=== PATIENT | male | born 1985 | race Two or more races ===

== ENCOUNTER → 2016-10-04 | Outpatient (CLI) | payer OTHER ==
[2015-03-07 21:04] VITALS: BP 122/60
[2016-10-04 20:03] LABS: BF CLARITY HAZY; BF COLOR YELLOW
== END | disposition home or self-care (01) ==
LOC: LAB 16:24
PROVIDERS: ATTEND Orthopaedic Surgery
DX: M25.561 Pain in right knee (principal)
CPT/HCPCS: 87102; 87116; 87205; 89050; 89060

== ENCOUNTER → 2016-10-18 | Outpatient (CLI) | payer OTHER ==
[2015-03-07 21:04] VITALS: BP 122/60
--- NOTE | 2016-10-18 12:00 | KCIC ---
PROCEDURE MR of the right knee HISTORY Right knee pain and stiffness for 2 months anteriorly. No known injury. TECHNIQUE Standard noncontrast images are obtained. COMPARISON None FINDINGS No evidence of a medial meniscal tear. No evidence of a lateral meniscal tear. The anterior and the posterior cruciate ligaments are intact. Medial collateral ligament is intact. Iliotibial band unremarkable. Fibular collateral ligament, biceps femoris tendon and popliteus tendon are intact. The extensor mechanism is intact. Trace joint fluid. No evidence of an osteochondral loose body. Articular cartilage appears intact. No bone lesion or acute fracture. There is some mild soft tissue edema/fluid signal at the distal semimembranosus tendon compatible with mild bursitis. There is mild edema or inflammation within the infrapatellar fat. Solitary mildly enlarged popliteal lymph node identified measuring 11 millimeters. IMPRESSION 1. No evidence meniscal tear or internal derangement. 2. Solitary mildly enlarged popliteal lymph node, nonspecific but could be reactive. 3. Mild fluid or bursitis along the distal semimembranosus tendon. 4. Mild edema or inflammation within the infrapatellar fat. Electronically signed by: Terry Prince MD (Oct 18, 2016 11:58:51)
== END | disposition home or self-care (01) ==
LOC: KCIC MRI 09:53
PROVIDERS: ATTEND Orthopaedic Surgery
DX: M25.661 Stiffness of right knee, not elsewhere classified (principal)
CPT/HCPCS: 73721

== ENCOUNTER 2017-03-01 11:01 | Emergency (ER) | payer OTHER ==
[2017-03-01] MEDS ORDERED: METOCLOPRAMIDE HCL 10 MG/2 ML VIAL. IV ONE (12:15)
[2017-03-01] MEDS ORDERED: IV NORMAL SALINE 1000ML BAG 1,000 ML IV ONE (12:15)
[2017-03-01] MEDS ORDERED: HYDROmorphone 2 MG/ML VIAL IV ONE (12:15)
[2017-03-01] MEDS ORDERED: diphenhydrAMINE 50 MG/ML VIAL IVP ONE (12:15)
[2017-03-01 12:26] LABS: BASO % 0 % (0-3); EOS % 1 % (0-3); LYMPH # 1.4 x10^3/uL (1.0-4.8); LYMPH % 13 % (24-48); MEAN CORPUSCULAR HEMOGLOBIN 26 pg (25-35); MEAN CORPUSCULAR HGB CONC 33 g/dL (31-37); MEAN CORPUSCULAR VOLUME 78 fL (79-100); MONO % 5 % (0-9); NEUT % 82 % (31-73); PLATELET COUNT 214 x10^3/uL (140-400); RED BLOOD COUNT 5.36 x10^6/uL (4.30-5.70); RED CELL DISTRIBUTION WIDTH 14.3 % (11.5-14.5); WHITE BLOOD COUNT 11.4 x10^3/uL (4.0-11.0)
--- NOTE | 2017-03-01 12:31 | RAD ---
CT of the head without contrast, 03/01/2017: History: Headache, numbness and weakness The ventricles are within normal limits in size. There is no shift of the midline structures. There is no evidence of acute intracranial hemorrhage or mass effect. IMPRESSION: The CT of the head without contrast reveals no significant. PQRS Compliance Statement: One or more of the following individualized dose reduction techniques were utilized for this examination: 1. Automated exposure control 2. Adjustment of the mA and/or kV according to patient size 3. Use of iterative reconstruction technique
[2017-03-01 12:36] LABS: CALCIUM 8.5 mg/dL (8.5-10.1); CREATININE 0.8 mg/dL (0.7-1.3); GFR 111.3; POTASSIUM 3.7 mmol/L (3.5-5.1)
[2017-03-01 12:46] LABS: ALBUMIN 4.1 g/dL (3.4-5.0); ALBUMIN/GLOBULIN RATIO 1.2 (1.0-1.7); TOTAL PROTEIN 7.5 g/dL (6.4-8.2)
--- NOTE | 2017-03-01 12:46 | PHYS DOC ---
Past Medical History Past Medical History: Other Additional Past Medical Histor: SCIATICA Past Surgical History: No Surgical History Alcohol Use: Occasionally Drug Use: None Adult General Chief Complaint Chief Complaint: HEADACHE HPI HPI Patient is a 32 year old male who presents with one-week history of intermittent headaches right sided with some occasional nausea and vomiting. Headaches have been gradual in onset and not the most severe of life but has not had headaches similar to this before. Denies history of migraines. Denies any recent history of tick bites or mosquito bites. Denies photophobia or blurry vision. Occasional neck pain turning to the left. No chest pain shortness of breath abdominal pain. Denies fever. Review of Systems Review of Systems Constitutional: Denies fever or chills [] Eyes: Denies change in visual acuity, redness, or eye pain [] HENT: Denies nasal congestion or sore throat [] Respiratory: Denies cough or shortness of breath [] Cardiovascular: No additional information not addressed in HPI [] GI: Denies abdominal pain, nausea, vomiting, bloody stools or diarrhea [] : Denies dysuria or hematuria [] Musculoskeletal: Denies back pain or joint pain [] Integument: Denies rash or skin lesions [] Neurologic: Denies, focal weakness or sensory changes [] Endocrine: Denies polyuria or polydipsia [ All systems were negative except as mentioned in history of present illness.] Current Medications Current Medications Current Medications Medications (Trade) Dose Ordered Sig/[facility] Start Time Stop Time Status Last Admin Dose Admin Diphenhydramine HCl (Benadryl) 25 mg 1X ONCE 03/01/17 12:15 03/01/17 12:19 DC 03/01/17 12:22 25 MG Hydromorphone HCl (Dilaudid) 0.5 mg 1X ONCE 03/01/17 12:15 03/01/17 12:19 DC 03/01/17 12:25 0.5 MG Ketorolac Tromethamine (Toradol) 30 mg 1X ONCE 03/01/17 14:15 03/01/17 14:16 DC 03/01/17 14:42 30 MG Metoclopramide HCl (Reglan) 5 mg 1X ONCE 03/01/17 12:15 03/01/17 12:19 DC 03/01/17 12:20 5 MG Sodium Chloride 1,000 ml @ 1,000 mls/hr 1X ONCE 03/01/17 12:15 03/01/17 13:14 DC 03/01/17 12:25 1,000 MLS/HR Allergies Allergies Allergies Coded Allergies Type Severity Reaction Last Updated Verified No Known Drug Allergies 03/07/15 No Physical Exam Physical Exam Constitutional: Well developed, well nourished, no acute distress, non-toxic appearance. [] HENT: Normocephalic, atraumatic, bilateral external ears normal, oropharynx moist, no oral exudates, nose normal. [] Eyes: PERRLA, EOMI, conjunctiva normal, no discharge. Some faint horizontal nystagmus [] Neck: Normal range of motion, no tenderness, supple, no stridor. No nuchal rigidity, no lymphadenopathy [] Cardiovascular:Heart rate regular rhythm, no murmur [] Lungs & Thorax: Bilateral breath sounds clear to auscultation [] Abdomen: Bowel sounds normal, soft, no tenderness, no masses, no pulsatile masses. [] Skin: Warm, dry, no erythema, no rash. [] Back: No tenderness, no CVA tenderness. [] Extremities: No tenderness, no cyanosis, no clubbing, ROM intact, no edema. [] Neurologic: Alert and oriented X 3, normal motor function, normal sensory function, no focal deficits noted. Equal 5 out of 5 cook night strength, no pronator drift, normal finger to nose, normal heel to lag[place]. [] Psychologic: Affect normal, judgement normal, mood normal. [] Current Patient Data Vital Signs Vital Signs Date Time Temp Pulse Resp B/P (MAP) Pulse Ox O2 Delivery O2 Flow Rate FiO2 03/01/17 16:15 60 18 102/56 (71) 100 Room Air 03/01/17 11:15 97.5 97.5 Lab Values Laboratory Tests Test 03/01/17 11:50 03/01/17 14:00 03/01/17 15:43 White Blood Count 11.4 x10^3/uL (4.0-11.0) H Red Blood Count 5.36 x10^6/uL (4.30-5.70) Hemoglobin 14.0 g/dL (13.0-17.5) Hematocrit 42.0 % (39.0-53.0) Mean Corpuscular Volume 78 fL (79-100) L Mean Corpuscular Hemoglobin 26 pg (25-35) Mean Corpuscular Hemoglobin Concent 33 g/dL (31-37) Red Cell Distribution Width 14.3 % (11.5-14.5) Platelet Count 214 x10^3/uL (140-400) Neutrophils (%) (Auto) 82 % (31-73) H Lymphocytes (%) (Auto) 13 % (24-48) L Monocytes (%) (Auto) 5 % (0-9) Eosinophils (%) (Auto) 1 % (0-3) Basophils (%) (Auto) 0 % (0-3) Neutrophils # (Auto) 9.3 x10^3uL (1.8-7.7) H Lymphocytes # (Auto) 1.4 x10^3/uL (1.0-4.8) Monocytes # (Auto) 0.6 x10^3/uL (0.0-1.1) Eosinophils # (Auto) 0.1 x10^3/uL (0.0-0.7) Basophils # (Auto) 0.0 x10^3/uL (0.0-0.2) Sodium Level 143 mmol/L (136-145) Potassium Level 3.7 mmol/L (3.5-5.1) Chloride Level 106 mmol/L (98-107) Carbon Dioxide Level 28 mmol/L (21-32) Anion Gap 9 (6-14) Blood Urea Nitrogen 16 mg/dL (8-26) Creatinine 0.8 mg/dL (0.7-1.3) Estimated GFR (Cockcroft-Gault) 111.3 BUN/Creatinine Ratio 20 (6-20) Glucose Level 114 mg/dL (70-99) H Calcium Level 8.5 mg/dL (8.5-10.1) Total Bilirubin 1.0 mg/dL (0.2-1.0) Aspartate Amino Transferase (AST) 17 U/L (15-37) Alanine Aminotransferase (ALT) 35 U/L (16-63) Alkaline Phosphatase 73 U/L (46-116) Total Protein 7.5 g/dL (6.4-8.2) Albumin 4.1 g/dL (3.4-5.0) Albumin/Globulin Ratio 1.2 (1.0-1.7) CSF Color Colorless CSF Clarity Clear CSF WBC 137 CSF RBC 3 CSF Mononuclear WBCs % 100 % CSF Glucose 59 mg/dL (37-70) CSF Total Protein 178.4 mg/dL (15.0-45.0) H Lactic Acid Level 0.8 mmol/L (0.4-2.0) Laboratory Tests 03/01/17 11:50 Laboratory Tests 03/01/17 11:50 Microbiology 03/01/17 Gram Stain - Final, Complete EKG EKG [] Radiology/Procedures Radiology/Procedures CT head [negative per radiology report] Course & Med Decision Making Course & Med Decision Making Pertinent Labs and Imaging studies reviewed. (See chart for details) Plan will be to treat symptomatically with IV fluids and medications. We will check labs obtain a CT head and consider lumbar puncture. Time 1315 patient feels somewhat improved with just a low-grade headache extensive discussion with the patient and the regarding risks benefits alternatives of obtaining a lumbar puncture for further clarification of diagnosis, and limitations of CT scanning so far. They wish to proceed with a lumbar puncture. [] Procedure the Lumbar puncture: Risks benefits alternatives explained, prepped draped in normal sterile fashion, 5 mL 1% lidocaine instilled, left lateral decubitus position, L3-L4 , no complications, tolerated well, fluid looks clear. Used a 22-gauge 3-1/2 inch spinal needle. CSF test results were consistent with viral meningitis. Patient's clinical exam was improved during his stay he is able to take by mouth is not encephalopathic. I discussed the case in detail with the infectious disease disaster recovery consultant Dr. Mary who feels the patient stable to go home with supportive care. He patient and are comfortable with outpatient management. Dragon Disclaimer Dragon Disclaimer This electronic medical record was generated, in whole or in part, using a voice recognition dictation system. Departure Departure Impression: Primary Impression: Viral meningitis Additional Impression: Headache Disposition: 01 HOME, SELF-CARE Condition: IMPROVED Referrals: NO PCP (PCP) Patient Instructions: General Headache Without Cause, [id number], Viral Meningitis Additional Instructions: Recommend follow up with primary care physician for reexamination within the next 3 days Scripts Ondansetron (ZOFRAN ODT) 4 Mg Tab.rapdis 1 TAB SL Q8HRS for NAUSEA for 5 Days, #8 TAB Prov: MILO MAJOR MD 03/01/17 Oxycodone/Apap 5-325 (PERCOCET 5-325 MG TABLET) 1 Each Tablet 1 TAB PO PRN Q6HRS Y for PAIN for 7 Days, #14 TAB 0 Refills Prov: MILO MAJOR MD 03/01/17 Problem Qualifiers MILO MAJOR MD Mar 01, 2017 12:46
[2017-03-01] MEDS ORDERED: KETOROLAC TROMETHAMINE 30 MG/ML INJ. IV ONE (14:15)
[2017-03-01 14:29] LABS: CSF PROTEIN 178.4 mg/dL (15.0-45.0)
[2017-03-01 15:02] LABS: CSF CLARITY CLEAR; CSF COLOR COLORLESS
[2017-03-01] MEDS ORDERED: OXYC-323 PO (16:07)
[2017-03-01] MEDS ORDERED: ONDA4TAB10 SL (16:07)
[2017-03-01 16:15] VITALS: BP 102/56
[2017-03-03 00:09] LABS: HSV 1&2 IGM <0.91 Ratio (0.00-0.90)
[2017-03-03 17:17] LABS: WEST NILE IGG CSF Positive (Negative); WEST NILE IGM CSF Negative (Negative)
[2017-03-06 18:10] LABS: WEST NILE IGG Positive (Negative); WEST NILE IGM Negative (Negative)
== END 2017-03-01 16:20 | disposition home or self-care (01) ==
LOC: ER 11:01
DX: A87.9 Viral meningitis, unspecified (principal); R51 Headache; R11.2 Nausea with vomiting, unspecified
CPT/HCPCS: 36415; 62270; 70450; 80053; 82945; 83605; 84157; 85027; 86788; 86789; 87040; 87071; 87075; 87205; 87529; 89051; 96361; 96374; 96375; 99285; J1170; J1200; J1885; J2765; J7030

== ENCOUNTER 2017-03-05 23:23 | Emergency (ER) | payer OTHER ==
[~2017-03-05] VITALS: Ht 167.6 cm; Wt 90.7 kg
[~2017-03-05 23:23] MED LIST: ONDA4TAB10 SL; OXYC-323 PO
--- NOTE | 2017-03-06 01:50 | PHYS DOC ---
Past Medical History Past Medical History: Asthma, Other Additional Past Medical Histor: SCIATICA Past Surgical History: No Surgical History Alcohol Use: Occasionally Drug Use: None Adult General Chief Complaint Chief Complaint: NAUSEA/VOMITING/DIARRHA HPI HPI Patient is a 32 year old male who presents with complaint of nausea, dizziness , and weakness. Patient was seen on March 01 and was diagnosed with viral meningitis at his previous ED visit. Patient was treated in symptoms improved, thus patient was able to be discharged without admission to the hospital. Patient states that he has been taking Percocet and Zofran at home. Patient states that he has been having worsening nausea and increasing dizziness over the past 2 days. Patient states he did return of his Zofran medication at home. Patient has been taking Percocet as needed for pain. Patient denies any headache or abdominal pain currently. Patient does state that he has had intermittent chest pain and intermittent shortness of breath. Patient states currently he is experiencing no chest pain or shortness of breath. Due to the dizziness and nausea the patient came into the emergency department to be reevaluated. Review of Systems Review of Systems Constitutional: Dizziness, generalized weakness, denies fever [] Eyes: Denies change in visual acuity, redness, or eye pain [] HENT: Denies nasal congestion or sore throat [] Respiratory: Shortness of breath, currently resolved [] Cardiovascular: Intermittent chest pain, currently resolved [] GI: Nausea, denies abdominal pain, vomiting, bloody stools or diarrhea [] : Denies dysuria or hematuria [] Musculoskeletal: Denies back pain or joint pain [] Integument: Denies rash or skin lesions [] Neurologic: Denies headache, focal weakness or sensory changes [] Current Medications Current Medications Current Medications Medications (Trade) Dose Ordered Sig/[facility] Start Time Stop Time Status Last Admin Dose Admin Ondansetron HCl (Zofran) 4 mg 1X ONCE 03/06/17 02:15 03/06/17 02:16 DC 03/06/17 02:25 4 MG Allergies Allergies Allergies Coded Allergies Type Severity Reaction Last Updated Verified No Known Drug Allergies 03/07/15 No Physical Exam Physical Exam Constitutional: Alert, afebrile, appears in mild discomfort. [] HENT: Normocephalic, atraumatic, bilateral external ears normal, oropharynx moist, no oral exudates, nose normal. [] Eyes: PERRLA, EOMI, conjunctiva normal, injected sclera, no discharge. [] Neck: Normal range of motion, no tenderness, supple, no stridor. [] Cardiovascular:Heart rate regular rhythm, no murmur [] Lungs & Thorax: Bilateral breath sounds clear to auscultation [] Abdomen: Bowel sounds normal, soft, no tenderness, no masses, no pulsatile masses. [] Skin: Warm, dry, no erythema, no rash. [] Back: No tenderness, no CVA tenderness. [] Extremities: No tenderness, no cyanosis, no clubbing, ROM intact, no edema. [] Neurologic: Alert and oriented X 3, normal motor function, normal sensory function, no focal deficits noted. [] Current Patient Data Vital Signs Vital Signs Date Time Temp Pulse Resp B/P (MAP) Pulse Ox O2 Delivery O2 Flow Rate FiO2 03/05/17 23:50 97.8 57 16 124/71 (88) 100 Room Air 97.8 Lab Values Laboratory Tests Test 03/06/17 00:10 03/06/17 00:16 White Blood Count 7.0 x10^3/uL (4.0-11.0) Red Blood Count 5.27 x10^6/uL (4.30-5.70) Hemoglobin 13.5 g/dL (13.0-17.5) Hematocrit 42.1 % (39.0-53.0) Mean Corpuscular Volume 80 fL (79-100) Mean Corpuscular Hemoglobin 26 pg (25-35) Mean Corpuscular Hemoglobin Concent 32 g/dL (31-37) Red Cell Distribution Width 14.1 % (11.5-14.5) Platelet Count 223 x10^3/uL (140-400) Neutrophils (%) (Auto) 46 % (31-73) Lymphocytes (%) (Auto) 43 % (24-48) Monocytes (%) (Auto) 8 % (0-9) Eosinophils (%) (Auto) 3 % (0-3) Basophils (%) (Auto) 0 % (0-3) Neutrophils # (Auto) 3.2 x10^3uL (1.8-7.7) Lymphocytes # (Auto) 3.0 x10^3/uL (1.0-4.8) Monocytes # (Auto) 0.6 x10^3/uL (0.0-1.1) Eosinophils # (Auto) 0.2 x10^3/uL (0.0-0.7) Basophils # (Auto) 0.0 x10^3/uL (0.0-0.2) Sodium Level 145 mmol/L (136-145) Potassium Level 3.4 mmol/L (3.5-5.1) L Chloride Level 105 mmol/L (98-107) Carbon Dioxide Level 32 mmol/L (21-32) Anion Gap 8 (6-14) Blood Urea Nitrogen 17 mg/dL (8-26) Creatinine 0.9 mg/dL (0.7-1.3) Estimated GFR (Cockcroft-Gault) 97.2 BUN/Creatinine Ratio 19 (6-20) Glucose Level 80 mg/dL (70-99) Calcium Level 8.9 mg/dL (8.5-10.1) Total Bilirubin 0.5 mg/dL (0.2-1.0) Aspartate Amino Transferase (AST) 15 U/L (15-37) Alanine Aminotransferase (ALT) 31 U/L (16-63) Alkaline Phosphatase 81 U/L (46-116) Total Protein 7.3 g/dL (6.4-8.2) Albumin 3.9 g/dL (3.4-5.0) Albumin/Globulin Ratio 1.1 (1.0-1.7) Urine Collection Type Unknown Urine Color Yellow Urine Clarity Clear Urine pH 7.0 Urine Specific [place] 1.015 Urine Protein Negative mg/dL (NEG-TRACE) Urine Glucose (UA) Negative mg/dL (NEG) Urine Ketones (Stick) Negative mg/dL (NEG) Urine Blood Negative (NEG) Urine Nitrite Negative (NEG) Urine Bilirubin Negative (NEG) Urine Urobilinogen Dipstick 1.0 mg/dL (0.2 mg/dL) Urine Leukocyte Esterase Negative (NEG) Urine RBC 0 /HPF (0-2) Urine WBC 0 /HPF (0-4) Urine Squamous Epithelial Cells Few /LPF Urine Bacteria 0 /HPF (0-FEW) Urine Mucus Slight /LPF Laboratory Tests 03/06/17 00:10 Laboratory Tests 03/06/17 00:10 EKG EKG Interpreted by me: Heart rate 56, sinus rhythm, leftward axis, no acute ST/T- wave abnormalities present [] Radiology/Procedures Radiology/Procedures One view AP chest x-ray interpreted by me: No infiltrate, no effusions, normal cardiac silhouette [] Course & Med Decision Making Course & Med Decision Making Pertinent Labs and Imaging studies reviewed. (See chart for details) Patient was given IV fluids and IV Zofran in the emergency department. On reevaluation, patient states his symptoms have improved at this time. The patient's lab work and chest x-ray are unremarkable. The patient's symptoms are likely result of sequelae from ongoing viral meningitis which appears to be improving at this time. The patient will be prescribed Zofran to help with nausea. Advised continued oral hydration at home and diet as tolerated. Advised follow-up in 2-3 days with primary doctor for reevaluation and return to emergency department for any worsening symptoms. Patient voiced understanding and in agreement with treatment plan. Dragon Disclaimer Dragon Disclaimer This electronic medical record was generated, in whole or in part, using a voice recognition dictation system. Departure Departure Impression: Primary Impression: Generalized weakness Additional Impressions: Nausea Viral meningitis Disposition: HOME, SELF-CARE Condition: IMPROVED Referrals: NO PCP (PCP) Patient Instructions: Nausea, Adult, Viral Meningitis, Weakness Additional Instructions: Follow-up in 2-3 days with your primary doctor for reevaluation. Return to the emergency department for any worsening symptoms. Scripts Ondansetron (ZOFRAN ODT) 4 Mg Tab.rapdis 4 MG PO Q8HRS Y for NAUSEA/VOMITING, #20 TAB Prov: MILO MICHEL MD 03/06/17 Problem Qualifiers MILO MICHEL MD Mar 06, 2017 01:50
[2017-03-06 01:58] LABS: BASO % 0 % (0-3); EOS % 3 % (0-3); HEMATOCRIT 42.1 % (39.0-53.0); HEMOGLOBIN 13.5 g/dL (13.0-17.5); LYMPH % 43 % (24-48); MEAN CORPUSCULAR HEMOGLOBIN 26 pg (25-35); MEAN CORPUSCULAR HGB CONC 32 g/dL (31-37); MEAN CORPUSCULAR VOLUME 80 fL (79-100); MONO % 8 % (0-9); NEUT % 46 % (31-73); PLATELET COUNT 223 x10^3/uL (140-400); RED BLOOD COUNT 5.27 x10^6/uL (4.30-5.70); RED CELL DISTRIBUTION WIDTH 14.1 % (11.5-14.5)
[2017-03-06 02:11] LABS: BILIRUBIN,URINE NEGATIVE (NEG); GLUCOSE,URINE NEGATIVE (NEG); NITRITE,URINE NEGATIVE (NEG); PROTEIN,URINE NEGATIVE (NEG-TRACE)
[2017-03-06 02:11] LABS: CALCIUM 8.9 mg/dL (8.5-10.1); CREATININE 0.9 mg/dL (0.7-1.3); GFR 97.2; POTASSIUM 3.4 mmol/L (3.5-5.1)
[2017-03-06 02:14] LABS: ALBUMIN 3.9 g/dL (3.4-5.0); ALBUMIN/GLOBULIN RATIO 1.1 (1.0-1.7); TOTAL BILIRUBIN 0.5 mg/dL (0.2-1.0); TOTAL PROTEIN 7.3 g/dL (6.4-8.2)
[2017-03-06] MEDS ORDERED: ONDANSETRON PF 4 MG/2 ML VIAL. IV ONE (02:15)
[2017-03-06 02:17] LABS: BACTERIA,URINE 0 /HPF (0-FEW); RBC,URINE 0 /HPF (0-2); SQUAMOUS EPITHELIAL CELL,UR FEW /LPF; WBC,URINE 0 /HPF (0-4)
[2017-03-06 03:00] VITALS: BP 99/69
[2017-03-06] MEDS ORDERED: ONDA4TAB10 PO (03:12)
--- NOTE | 2017-03-06 07:47 | RAD ---
EXAM: Chest one view. HISTORY: Chest pain. COMPARISON: None. FINDINGS: A frontal view of the chest is obtained. There are no confluent infiltrates. There is no pneumothorax or pleural effusion. The heart is not enlarged. IMPRESSION: 1. No confluent infiltrates.
== END 2017-03-06 03:29 | disposition home or self-care (01) ==
LOC: ER 23:23
DX: A87.9 Viral meningitis, unspecified (principal); R53.1 Weakness; R11.0 Nausea; R42 Dizziness and giddiness; J45.909 Unspecified asthma, uncomplicated
CPT/HCPCS: 36415; 71010; 80053; 81001; 85027; 96374; 99285; J2405

== ENCOUNTER 2020-04-22 17:33 | Emergency (ER) | payer OTHER ==
[~2020-04-22] VITALS: Ht 165.1 cm; Wt 90.9 kg
[~2020-04-22 17:33] MED LIST changes: +ONDA4TAB10 PO; -OXYC-323 PO; +OXYC1TAB15 PO
--- NOTE | 2020-04-22 19:51 | RAD ---
Exam: Left humerus 2 views. Left elbow 3 views. Left forearm 2 views INDICATION: Pain after fall TECHNIQUE: Frontal and lateral views of the left humerus and forearm. Frontal, lateral and oblique views left elbow Comparisons: None FINDINGS: Humerus: Bone mineralization is normal. No acute or healed fractures. Soft tissues are unremarkable. Joint spaces are well-maintained. Elbow: Bone mineralization is normal. No acute or healed fractures. Soft tissues are unremarkable. Joint spaces are well-maintained. Forearm: Bone mineralization is normal. No acute or healed fractures. Soft tissues are unremarkable. Joint spaces are well-maintained. IMPRESSION: 1. No acute osseous abnormality of the left humerus. 2. No acute osseous abnormality of the left elbow. 3. No acute osseous abnormality of the left forearm. Electronically signed by: Silvia Rodgers MD (04/22/2020 7:48 PM) [id number]
--- NOTE | 2020-04-22 19:55 | RAD ---
Exam: Right humerus 2 views. Right shoulder 3 views INDICATION: Knee pain TECHNIQUE: Frontal and lateral views right humerus. Frontal view of the right shoulder with internal and external rotation and transscapular Y view Comparisons: None FINDINGS: Humerus: Bone mineralization is normal. No acute or healed fractures. Soft tissues are unremarkable. Joint spaces are well-maintained. Shoulder: Bone mineralization is normal. No acute or healed fractures. Soft tissues are unremarkable. Joint spaces are well-maintained. IMPRESSION: 1. No acute osseous abnormality of the right humerus. 2. No acute osseous abnormality of the right shoulder. Electronically signed by: Silvia Rodgers MD (04/22/2020 7:52 PM) [id number]
--- NOTE | 2020-04-22 20:09 | RAD ---
Exam: Right knee 3 views INDICATION: Right knee pain after fall TECHNIQUE: Frontal, lateral and oblique views of the right knee Comparisons: None FINDINGS: Small suprapatellar effusion. Bone mineralization is normal. No acute or healed fractures. Joint spaces are well-maintained. IMPRESSION: Small suprapatellar effusion without underlying osseous abnormality identified. Electronically signed by: Silvia Rodgers MD (04/22/2020 8:06 PM) [id number]
--- NOTE | 2020-04-22 20:47 | PHYS DOC ---
Past Medical History Past Medical History: Asthma, Other Additional Past Medical Histor: SCIATICA Past Surgical History: No Surgical History Smoking Status: Never Smoker Alcohol Use: Occasionally Drug Use: None General Adult EDM: Chief Complaint: MECHANICAL FALL HPI: HPI: Patient is a 35 year old male who fell 9 feet from a ceiling today while he was at work. The patient reports at first he caught himself but was unable to hold himself in the ceiling and then fell onto the floor. He denies any loss of consciousness, head injury, no chest pain, shortness of breath, nausea, vomiting, back pain, neck pain, numbness, tingling, saddle anesthesia, or loss of bowel/bladder control. He complains of left forearm, left upper arm, left elbow, right upper arm, right shoulder, and right knee pain. He reports abrasions/bruising to his inner upper right arm and bruising to his left forearm. Patient states that the event occurred approximately 4 hours prior to arrival. He continued to work for the rest of the day but when he arrived home his insisted that he comes to the emergency department. He currently rates his pain a 5 out of 10 on the pain scale, he denies taking any pain medication prior to arrival. Currently rates his pain a 5 out of 10 on the pain scale, he denies any alleviating factors, the pain is worse with palpation and movement. He denies radiation of the pain. Review of Systems: Review of Systems: Constitutional: Denies fever or chills. [] Eyes: Denies change in visual acuity. [] HENT: Denies nasal congestion or sore throat. [] Respiratory: Denies cough or shortness of breath. [] Cardiovascular: Denies chest pain or edema. [] GI: Denies abdominal pain, nausea, vomiting Musculoskeletal: See HPI Integument: See HPI Neurologic: Denies headache, focal weakness or sensory changes. [] Psychiatric: Denies depression or anxiety. [] Heart Score: Risk Factors: Risk Factors: DM, Current or recent (<one month) smoker, HTN, HLP, family history of CAD, obesity. Risk Scores: Score 0 - 3: 2.5% MACE over next 6 weeks - Discharge Home Score 4 - 6: 20.3% MACE over next 6 weeks - Admit for Clinical Observation Score 7 - 10: 72.7% MACE over next 6 weeks - Early Invasive Strategies Allergies: Allergies: Allergies Coded Allergies Type Severity Reaction Last Updated Verified No Known Drug Allergies 03/07/15 No Physical Exam: PE: Constitutional: Well developed, well nourished, no acute distress, non-toxic appearance, obese. [] HENT: Normocephalic, atraumatic, bilateral external ears normal, oropharynx moist, no oral exudates, nose normal. [] Eyes: PERRLA, EOMI, conjunctiva normal, no discharge. [] Neck: Normal range of motion, no tenderness, supple, no stridor. [] Cardiovascular:Heart rate regular rhythm, no murmur [] Lungs & Thorax: Bilateral breath sounds clear to auscultation, respirations even and unlabored, no retractions, no respiratory distress [] Skin: Warm, dry; bruising noted to the right inner upper arm, no bleeding, no open wounds; bruising noted to left forearm Back: No bony tenderness, no paraspinal tenderness, no deformities Extremities: Left forearm: Mid forearm tenderness to palpation without crepitus or obvious deformity; 1+ edema,, no cyanosis, no clubbing, ROM intact Left humerus: Diffuse left upper arm tenderness to palpation without crepitus or obvious deformity, no cyanosis, no clubbing, ROM intact, no edema. [] Left elbow: No bony tenderness, no cyanosis, no clubbing, ROM intact, no edema; reports pain with range of motion. [] Right shoulder: Right anterior shoulder tenderness to palpation without crepitus or obvious deformity, no cyanosis, no clubbing, ROM intact, no edema. [] Right humerus: Right proximal humerus tenderness to palpation without crepitus or obvious deformity, no cyanosis, no clubbing, ROM intact, no edema. [] Right knee: Right proximal anterior knee tenderness to palpation without crepitus or obvious deformity, negative anterior/posterior drawer testing, no cyanosis, no clubbing, ROM intact, 2+ edema to proximal portion of anterior knee Neurologic: Alert and oriented X 3, normal motor function, normal sensory function, no focal deficits noted. [] Psychologic: Affect normal, judgement normal, mood normal. [] Current Patient Data: Vital Signs: Vital Signs Date Time Temp Pulse Resp B/P (MAP) Pulse Ox O2 Delivery O2 Flow Rate FiO2 04/22/20 18:35 58 16 99 04/22/20 18:26 98.3 114/72 (86) Room Air 98.3 EKG: EKG: [] Radiology/Procedures: Radiology/Procedures: PROCEDURE: ELBOW LEFT 3V Exam: Left humerus 2 views. Left elbow 3 views. Left forearm 2 views INDICATION: Pain after fall TECHNIQUE: Frontal and lateral views of the left humerus and forearm. Frontal, lateral and oblique views left elbow Comparisons: None FINDINGS: Humerus: Bone mineralization is normal. No acute or healed fractures. Soft tissues are unremarkable. Joint spaces are well-maintained. Elbow: Bone mineralization is normal. No acute or healed fractures. Soft tissues are unremarkable. Joint spaces are well-maintained. Forearm: Bone mineralization is normal. No acute or healed fractures. Soft tissues are unremarkable. Joint spaces are well-maintained. IMPRESSION: 1. No acute osseous abnormality of the left humerus. 2. No acute osseous abnormality of the left elbow. 3. No acute osseous abnormality of the left forearm. [] PROCEDURE: HUMERUS RIGHT Exam: Right humerus 2 views. Right shoulder 3 views INDICATION: Knee pain TECHNIQUE: Frontal and lateral views right humerus. Frontal view of the right shoulder with internal and external rotation and transscapular Y view Comparisons: None FINDINGS: Humerus: Bone mineralization is normal. No acute or healed fractures. Soft tissues are unremarkable. Joint spaces are well-maintained. Shoulder: Bone mineralization is normal. No acute or healed fractures. Soft tissues are unremarkable. Joint spaces are well-maintained. IMPRESSION: 1. No acute osseous abnormality of the right humerus. 2. No acute osseous abnormality of the right shoulder. PROCEDURE: KNEE RIGHT 3V Exam: Right knee 3 views INDICATION: Right knee pain after fall TECHNIQUE: Frontal, lateral and oblique views of the right knee Comparisons: None FINDINGS: Small suprapatellar effusion. Bone mineralization is normal. No acute or healed fractures. Joint spaces are well-maintained. IMPRESSION: Small suprapatellar effusion without underlying osseous abnormality identified. PROCEDURE: CHEST PA & LATERAL Exam: Chest 2 views INDICATION: Fall from ceiling TECHNIQUE: Frontal and lateral views the chest Comparisons: 03/05/2017 FINDINGS: The cardiomediastinal silhouette and pulmonary vessels are within normal limits. The lung and pleural spaces are clear. IMPRESSION: No acute cardiopulmonary process. Course & Med Decision Making: Course & Med Decision Making Pertinent Labs and Imaging studies reviewed. (See chart for details) 35-year-old male presents emergency department multiple complaints after a 9 foot fall from a ceiling that happened approximately 4 hours prior to arrival. X-rays of bilateral upper extremities revealed no acute findings or fractures; chest x-ray revealed no acute abnormalities or findings; the right knee x-ray revealed a moderate anterior knee effusion. The patient was given some Stepan wraps by the nurse. He was encouraged to purchase it [id number] compression knee sleeve. Prescription written for naproxen 500 mg p.o. twice daily, patient declined narcotic pain medication reports that he likes taking urine drug screen tomorrow because this happened at his employer. Encouraged patient to apply ice elevate, and rest the affected extremities. Follow-up with his primary care doctor Dr. Delgado if symptoms persist, return to the ER symptoms worsen. Patient and his verbalized an understanding of home care, medications, follow-up, and return to ED instructions and was in agreement with the plan of care. [] Dragon Disclaimer: Dragon Disclaimer: This electronic medical record was generated, in whole or in part, using a voice recognition dictation system. Departure Departure Impression: Primary Impression: Fall from height of greater than 3 feet Additional Impressions: Left arm pain Right knee pain Qualified Codes: M25.561 - Pain in right knee Effusion of right knee joint Pain, arm, right Contusion of multiple sites Disposition: 01 HOME, SELF-CARE Condition: STABLE Referrals: KALYANI RITTER MD (PCP) Patient Instructions: Contusion, [id number], Knee Effusion, [id number] Additional Instructions: Fill prescription(s) and use as directed. Recommend application of ice, elevation, and rest of affected extremity. I recommend that you buy a co mpression knee sleeve for your right knee to help with discomfort. Follow-up with Dr. Delgado your primary care doctor in 1 to 2 days. Return to the ER if your symptoms worsen. Scripts Naproxen (NAPROXEN) 500 Mg Tablet 1 TAB PO BID PRN for PAIN for 10 Days, #20 TAB 0 Refills Prov: KAROLYN HUITRON APRN 04/22/20 Justicifation of Admission Dx: Justifications for Admission: Justification of Admission Dx: N/A KAROLYN HUITRON APRN Apr 22, 2020 20:47
[2020-04-22] MEDS ORDERED: NAPROXEN 250 MG TABLET ONE (21:02)
[2020-04-22] MEDS ORDERED: NAPROXEN 250 MG TABLET PO ONE (21:15)
[2020-04-22] MEDS ORDERED: NAPROXEN 500 MG TABLET PO ONE (21:15)
[2020-04-22] MEDS ORDERED: NAPR-514 PO (21:51)
[2020-04-22 22:05] VITALS: BP 111/52
--- NOTE | 2020-04-22 22:05 | RAD ---
Exam: Chest 2 views INDICATION: Fall from ceiling TECHNIQUE: Frontal and lateral views the chest Comparisons: 03/05/2017 FINDINGS: The cardiomediastinal silhouette and pulmonary vessels are within normal limits. The lung and pleural spaces are clear. IMPRESSION: No acute cardiopulmonary process. Electronically signed by: Silvia Rodgers MD (04/22/2020 10:02 PM) [id number]
== END 2020-04-22 22:15 | disposition home or self-care (01) ==
LOC: ER 17:33
DX: S50.12XA Contusion of left forearm, initial encounter (principal); S40.021A Contusion of right upper arm, initial encounter; M25.461 Effusion, right knee; M25.511 Pain in right shoulder; M25.512 Pain in left shoulder; R07.89 Other chest pain; J45.909 Unspecified asthma, uncomplicated; W17.89XA Other fall from one level to another, initial encounter; Y93.89 Activity, other specified; Y92.89 Other specified places as the place of occurrence of the external cause; Y99.8 Other external cause status
CPT/HCPCS: 71046; 73030; 73060; 73080; 73090; 73562; 99285-25